=== PATIENT | female | born 1990 | race Two or more races ===

== ENCOUNTER 2018-12-07 23:18 | Emergency (ER) | payer MEDICAID ==
[~2018-12-07] VITALS: Ht 160 cm; Wt 117.9 kg
[2018-12-07 23:56] LABS: Basophils # (auto) 0 uL; Basophils % (auto) 0.3 % (0.0-2.0); Eosinophils # (auto) 0.1 uL; Hematocrit 42.2 % (36.0-46.0); Hemoglobin 13.9 g/dL (12.2-16.2); Lymphocytes # (auto) 1.5 uL; Lymphocytes % (auto) 12.2 % (10.0-50.0); Mean Corpuscular Volume 87.9 fL (80.0-100.0); Monocytes # (auto) 0.6 uL; Monocytes % (auto) 4.8 % (0.0-12.0); Neutrophils # (auto) 10.3 uL; Neutrophils % (auto) 81.7 % (37.0-80.0); Platelet Count (auto) 279 10^3/uL (140-450); Red Cell Distribution Width 14.2 % (11.8-14.3); White Blood Cell 12.6 10^3/uL (4.4-10.8)
[2018-12-08 00:14] LABS: Albumin 3.6 g/dL (3.4-5.0); BUN/Creatinine Ratio 13.3; Calcium 8.1 mg/dL (8.5-10.1); Potassium 3.3 mmol/L (3.5-5.1)
[2018-12-08 00:16] LABS: Bilirubin, Total 0.3 mg/dL (0.2-1.0)
[2018-12-08 03:38] LABS: Urine Bacteria FEW /hpf (None Seen); Urine Blood Negative /uL (Negative); Urine Mucus FEW (None Seen); Urine Specific Gravity 1.027 (1.001-1.035); Urine WBC 2 /hpf (0 - 5)
[2018-12-08 03:41] LABS: Alcohol, Urine < 3.0 mg/dL (0-5); Amphetamine Screen, Urine NEGATIVE (NEGATIVE); Barbiturate Scree,Urine NEGATIVE (NEGATIVE); Benzodiazephine Screen, Urine NEGATIVE (NEGATIVE); Cannabinoid Screen, Urine NEGATIVE (NEGATIVE); Cocaine Screen, Urine NEGATIVE (NEGATIVE); Opiate Scree,Urine NEGATIVE (NEGATIVE); Phencyclidine Screen, Urine NEGATIVE (NEGATIVE)
[2018-12-08 03:47] LABS: Urine Pregnacy Test Negative (Negative)
[2018-12-08 04:51] VITALS: BP 131/58
== END 2018-12-08 04:55 | disposition home or self-care (01) ==
LOC: ER 23:21
DX: K29.00 Acute gastritis without bleeding (principal); A05.9 Bacterial foodborne intoxication, unspecified; D72.829 Elevated white blood cell count, unspecified
CPT/HCPCS: 36415; 74176; 80053; 80307; 81001; 81025; 83690; 85025

== ENCOUNTER 2019-04-18 05:04 | Inpatient (IN) | payer MEDICAID ==
[~2019-04-18] VITALS: Ht 162.6 cm; Wt 106.6 kg
[2019-04-18 06:15] LABS: Urine Bacteria NONE SEEN /hpf (None Seen); Urine Blood Negative /uL (Negative); Urine Hyaline Cast FEW /lpf (0 - 2); Urine Mucus FEW (None Seen); Urine Specific Gravity 1.031 (1.001-1.035); Urine WBC 21 /hpf (0 - 5)
[2019-04-18] MEDS ORDERED: PANTOPRAZOLE 40 MG/10 ML VIAL INJ IV STA (06:33)
[2019-04-18] MEDS ORDERED: SODIUM CHLORIDE 0.9% 1,000 ML IVB ONE (06:33)
[2019-04-18] MEDS ORDERED: MORPHINE SULFATE 4 MG/ML SYR/VIAL IV ONE (06:45)
[2019-04-18] MEDS ORDERED: ONDANSETRON HCL 4 MG/2 ML VIAL IV ONE (06:45)
[2019-04-18 06:54] LABS: Basophils # (auto) 0 10 ^3/uL (0-0.2); Basophils % (auto) 0.2 % (0.0-2.0); Eosinophils # (auto) 0 10 ^3/uL (0-0.8); Eosinophils % (auto) 0.3 % (0.0-7.0); Hematocrit 41.7 % (36.0-46.0); Hemoglobin 13.8 g/dL (12.2-16.2); Lymphocytes # (auto) 0.9 10 ^3/uL (0.4-5.4); Lymphocytes % (auto) 6.5 % (10.0-50.0); Mean Corpuscular Hemoglobin 29.1 pg (28.0-32.0); Mean Corpuscular Hgb Conc. 33.1 g/dL (32.0-36.0); Monocytes # (auto) 0.8 10 ^3/uL (0-1.3); Monocytes % (auto) 5.7 % (0.0-12.0); Neutrophils # (auto) 11.6 10 ^3/uL (1.6-8.6); Neutrophils % (auto) 87.3 % (37.0-80.0); Platelet Count (auto) 265 10^3/uL (140-450); Red Blood Cells 4.74 10^6/uL (4.0-5.20); Red Cell Distribution Width 15.4 % (11.8-14.3); White Blood Cell 13.3 10^3/uL (4.4-10.8)
[2019-04-18 07:06] LABS: Albumin 3.5 g/dL (3.4-5.0); Calcium 8.7 mg/dL (8.5-10.1); Potassium 3.3 mmol/L (3.5-5.1)
[2019-04-18 07:09] LABS: BUN/Creatinine Ratio 13.6; Total Protein 8.3 g/dL (6.4-8.2)
[2019-04-18] MEDS ORDERED: cefTRIAXone 1GM/50ML D5W 50 ML IV ONE (08:00)
[2019-04-18] MEDS ORDERED: MORPHINE SULF INJ 2 MG/ML SYRINGE 1ML IV PRN (08:45)
[2019-04-18] MEDS ORDERED: NITROGLYCERIN 0.4 MG SL TAB SL PRN (08:45)
[2019-04-18] MEDS ORDERED: metroNIDAZOLE 500MG/100ML 100 ML IV ONE (09:15)
[2019-04-18] MEDS: D5W/SOD CHL 0.45%/KCL 20MEQ 1,000 ML IV SCH ×2 (09:26→18:34)
[2019-04-18] MEDS: FAMOTIDINE (10MG/ML) 2ML VL IV SCH ×2 (10:23→21:33)
--- NOTE | 2019-04-18 11:32 | NUR ---
Telemetry admit from ER BASSAM THORNTON admitted to Telemetry unit after SBAR received. Patient oriented to SOLIS NEWMAN RN primary RN, unit, room, bed, and unit policies regarding patient care and visiting hours. Patient now on continuous telemetry monitoring, tele box # [id number] and telemetry reading on arrival to unit is SR. Patient placed on bedside oxygen, weighed by bedscale and encouraged to call if they need something. All questions and concerns addressed, patient verbalized understanding.
[2019-04-18 12:05] VITALS: BP 101/51
--- NOTE | 2019-04-18 12:15 | NUR ---
SURGICAL CONSULT MD Flory THORPE AT [facility]. PATIENT UPDATED ON POC AND ALL QUESTIONS AND CONCERNS ADDRESSED AT THIS TIME.
--- NOTE | 2019-04-18 12:17 | NUR ---
PATIENT DENIES USE OF HOME MEDICATIONS
[2019-04-18 13:00] VITALS: BP 101/51
[2019-04-18] MEDS: metroNIDAZOLE 500MG/100ML 100 ML IV SCH ×2 (14:55→21:35)
[2019-04-18 17:00] VITALS: BP 112/58
--- NOTE | 2019-04-18 19:30 | NUR ---
Opening Shift Note Received shift report from Harriett DEMPSEY. Assumed care of patient, awake and alert. No S/S of distress/SOB or pain. Instructed on POC and to call for assist PRN, will continue to monitor for changes Q1hr and PRN. Bed in lowest locked position, side rails up times 2. Call light within reach. Continuing to monitor
[2019-04-18 20:00] VITALS: BP 97/53
[2019-04-18 22:00] VITALS: BP 97/53
[2019-04-19 02:00] VITALS: BP 98/60
[2019-04-19 05:00] VITALS: BP 93/63
[2019-04-19] MEDS: D5W/SOD CHL 0.45%/KCL 20MEQ 1,000 ML IV SCH ×2 (05:36→14:44)
[2019-04-19] MEDS: metroNIDAZOLE 500MG/100ML 100 ML IV SCH ×3 (05:36→22:16)
[2019-04-19] MEDS: MORPHINE SULF INJ 2 MG/ML SYRINGE 1ML IV PRN (05:37)
[2019-04-19] MEDS: ONDANSETRON HCL 4 MG/2 ML VIAL IV PRN (05:38)
[2019-04-19 05:57] LABS: Basophils # (auto) 0 10 ^3/uL (0-0.2); Basophils % (auto) 0.3 % (0.0-2.0); Eosinophils # (auto) 0.1 10 ^3/uL (0-0.8); Eosinophils % (auto) 2.2 % (0.0-7.0); Hemoglobin 12.5 g/dL (12.2-16.2); Lymphocytes # (auto) 1.9 10 ^3/uL (0.4-5.4); Lymphocytes % (auto) 30.1 % (10.0-50.0); Mean Corpuscular Hgb Conc. 33.7 g/dL (32.0-36.0); Monocytes # (auto) 0.5 10 ^3/uL (0-1.3); Monocytes % (auto) 8.5 % (0.0-12.0); Neutrophils # (auto) 3.8 10 ^3/uL (1.6-8.6); Neutrophils % (auto) 58.9 % (37.0-80.0); Platelet Count (auto) 235 10^3/uL (140-450); Red Blood Cells 4.16 10^6/uL (4.0-5.20); Red Cell Distribution Width 15.5 % (11.8-14.3); White Blood Cell 6.4 10^3/uL (4.4-10.8)
[2019-04-19 06:13] LABS: Potassium 3.7 mmol/L (3.5-5.1)
[2019-04-19 06:14] LABS: INR 1.07 (0.9-1.15); Partial Thromboplastin Time 30.7 sec (23.64-32.05)
--- NOTE | 2019-04-19 06:14 | NUR ---
REPORT GIVEN TO DIANA DEMPSEY
[2019-04-19 06:17] LABS: Albumin 2.9 g/dL (3.4-5.0); BUN/Creatinine Ratio 16.7
[2019-04-19 06:38] LABS: Bilirubin, Total 0.3 mg/dL (0.2-1.0); Total Protein 6.7 g/dL (6.4-8.2)
[2019-04-19 09:00] VITALS: BP 114/70
[2019-04-19] MEDS: cefTRIAXone 1GM/50ML D5W 50 ML IV SCH (09:00)
[2019-04-19] MEDS: FAMOTIDINE (10MG/ML) 2ML VL IV SCH ×2 (10:00→22:16)
[2019-04-19 13:00] VITALS: BP 92/48
[2019-04-19 17:05] VITALS: BP 95/65
--- NOTE | 2019-04-19 18:39 | NUR ---
Opening Shift Note Assumed care of patient, awake and alert. No S/S of distress/SOB or pain. Instructed on POC and to call for assist PRN, will continue to monitor for changes Q1hr and PRN. Bed in lowest locked position, side rails up times 2. Call light within reach. Continuing to monitor
--- NOTE | 2019-04-19 19:30 | NUR ---
RECEIVED PATIENT FROM DAY SHIFT RN. PATENT RESTING IN BED. NO S/S OF DISTRESS NOTED. DENIED ABD PAIN FOR NOW. REINFORCED NPO FOR NOW. POC INSTRUCTED AND ENCOURAGED PATIENT TO CALL FOR SALES OPERATIONS ASSISTANT IF NEEDED. BED IN LOWEST POSITION WITH SIDE RAILS UP X 2. CALL PEREZ WITHIN REACH. CONTINUE TO MONITOR FOR CHANGES Q1H AND PRN.
--- NOTE | 2019-04-19 22:44 | NUR ---
PATIENT RESTING IN BED. NO S/S OF DISTRESS NOTED. DENIED PAIN FOR NOW. CONTINUE TO MONITOR.
[2019-04-20 01:51] VITALS: BP 104/58
--- NOTE | 2019-04-20 03:50 | NUR ---
PATIENT SLEEPING. NO S/S OF DISTRESS NOTED. CONTINUE CARE.
[2019-04-20] MEDS: D5W/SOD CHL 0.45%/KCL 20MEQ 1,000 ML IV SCH ×3 (04:39→20:42)
[2019-04-20 05:00] VITALS: BP 106/59
[2019-04-20] MEDS: metroNIDAZOLE 500MG/100ML 100 ML IV SCH ×3 (05:47→21:25)
[2019-04-20 06:37] LABS: Albumin 3.1 g/dL (3.4-5.0); Magnesium 1.9 mg/dL (1.6-2.6); Potassium 3.8 mmol/L (3.5-5.1)
[2019-04-20 06:42] LABS: Bilirubin, Direct 0.1 mg/dL (0-0.2); Bilirubin, Total 0.4 mg/dL (0.2-1.0); Total Protein 7.1 g/dL (6.4-8.2)
[2019-04-20] MEDS: cefTRIAXone 1GM/50ML D5W 50 ML IV SCH (08:48)
[2019-04-20] MEDS: FAMOTIDINE (10MG/ML) 2ML VL IV SCH ×2 (08:48→21:25)
[2019-04-20 09:00] VITALS: BP 104/60
[2019-04-20 12:59] VITALS: BP 102/61
--- NOTE | 2019-04-20 14:30 | NUR ---
Headache Patient complained of headache at 6. Will page MD for orders. Offered cold compress, and low light.
[2019-04-20 16:36] VITALS: BP 106/62
--- NOTE | 2019-04-20 16:50 | NUR ---
Diet Order Telephone Order received from Dr. Tay to give patient clear liquid diet. Order also received for Acetaminophen 650mg Q6HP for pain. Order entered in eMAR.
[2019-04-20] MEDS ORDERED: ACETAMINOPHEN 325 MG TAB PO PRN (17:00)
[2019-04-20] MEDS: ONDANSETRON HCL 4 MG/2 ML VIAL IV PRN (17:44)
--- NOTE | 2019-04-20 19:30 | NUR ---
RECEIVED PATIENT FROM DAY SHIFT RN. PATENT RESTING IN BED. NO S/S OF DISTRESS NOTED. DENIED ABD PAIN FOR NOW. POC INSTRUCTED AND ENCOURAGED PATIENT TO CALL FOR COLOR PRINT INSPECTOR IF NEEDED. BED IN LOWEST POSITION WITH SIDE RAILS UP X 2. CALL PEREZ WITHIN REACH. CONTINUE TO MONITOR FOR CHANGES Q1H AND PRN.
[2019-04-20 22:00] VITALS: BP 97/53
--- NOTE | 2019-04-21 00:26 | NUR ---
PATIENT SLEEPING. NO S/S OF DISTRESS NOTED. CONTINUE CARE.
[2019-04-21] MEDS: D5W/SOD CHL 0.45%/KCL 20MEQ 1,000 ML IV SCH (03:12)
[2019-04-21 05:00] VITALS: BP 100/60
[2019-04-21] MEDS: metroNIDAZOLE 500MG/100ML 100 ML IV SCH ×2 (05:40→14:00)
--- NOTE | 2019-04-21 05:40 | NUR ---
PATIENT SLEEPING. NO S/S OF DISTRESS NOTED. CONTINUE CARE.
--- NOTE | 2019-04-21 07:45 | NUR ---
Opening Shift Note Assumed care of patient, awake and alert. No S/S of distress/SOB or pain. Instructed on POC and to call for assist PRN, will continue to monitor for changes Q1hr and PRN. Patient had questions regarding going home. She was informed that there is no discharge order yet, when the hospitalist round he will notify her. She also stated that she does not want to do surgery. She would like to follow up with her PCP. She will notify hospitalist.
[2019-04-21 09:00] VITALS: BP 89/45
[2019-04-21] MEDS: cefTRIAXone 1GM/50ML D5W 50 ML IV SCH (09:28)
[2019-04-21] MEDS: FAMOTIDINE (10MG/ML) 2ML VL IV SCH (09:28)
[2019-04-21 13:00] VITALS: BP_SYST 101; BP_SYST 97; BP_DIAS 52; BP_DIAS 59
[2019-04-21] MEDS: ONDANSETRON HCL 4 MG/2 ML VIAL IV PRN (14:00)
[2019-04-21] MEDS: MORPHINE SULF INJ 2 MG/ML SYRINGE 1ML IV PRN (14:00)
--- NOTE | 2019-04-21 14:00 | NUR ---
Pain Complaint Patient complained of pain to the upper epigastric region level 7. Morphine 2mg IV given and Zofran 4mg IV to prevent nausea. Will reassess in 30 minutes.
--- NOTE | 2019-04-21 16:00 | NUR ---
PCP Patient states that her doctor is Dr. Beth, and she will do a walk in on Tuesday.
[2019-04-21 16:03] VITALS: BP 105/57
[2019-04-21 16:32] VITALS: BP 105/57
--- NOTE | 2019-04-21 17:00 | NUR ---
Discharge instructions given as ordered. Encourage to follow up with PMD as instructed. All questions and concerns addressed. Patient verbalized understanding. Medication reconciliation form completed and copy given to patient. IV removed with catheter intact and pressure dressing applied. Telemetry unit returned to ICU. Patient taken to vehicle via wheelchair with all personal belongings, accompanied by staff and family member. No distress noted at time of departure.
== END 2019-04-21 17:00 | disposition home or self-care (01) ==
LOC: ER 05:06 → TELE 05:07 → TELE-WESTW 11:30
PROVIDERS: ADMIT Nurse Practitioner Acute Care; ATTEND Internal Medicine
DX: K80.00 Calculus of gallbladder with acute cholecystitis without obstruction (principal); N17.0 Acute kidney failure with tubular necrosis; E44.0 Moderate protein-calorie malnutrition; R65.10 Systemic inflammatory response syndrome (SIRS) of non-infectious origin without acute organ dysfunction; N30.00 Acute cystitis without hematuria; K83.8 Other specified diseases of biliary tract; Z68.41 Body mass index [BMI] 40.0-44.9, adult; E87.6 Hypokalemia; E66.9 Obesity, unspecified; N83.292 Other ovarian cyst, left side; K29.70 Gastritis, unspecified, without bleeding
CPT/HCPCS: 36415; 74176; 74181; 76705; 80053; 80076; 81001; 82150; 83690; 83735; 84132; 85025; 85610; 85730; 87086; 93005; 96361; 96365; 96375; C9113; G0378; J0696; J2405; J3490

== ENCOUNTER 2021-01-11 22:20 | Emergency (ER) | payer MEDICAID ==
[~2021-01-11] VITALS: Ht 162.6 cm; Wt 120.2 kg
[2021-01-11 23:34] LABS: Basophils # (auto) 0 10 ^3/uL (0-0.2); Basophils % (auto) 0.2 % (0.0-2.0); Eosinophils # (auto) 0.4 10 ^3/uL (0-0.8); Eosinophils % (auto) 2.7 % (0.0-7.0); Hematocrit 41.7 % (36.0-46.0); Hemoglobin 13.6 g/dL (12.2-16.2); Lymphocytes # (auto) 2.4 10 ^3/uL (0.4-5.4); Mean Corpuscular Hemoglobin 29.7 pg (28.0-32.0); Mean Corpuscular Hgb Conc. 32.5 g/dL (32.0-36.0); Mean Corpuscular Volume 91.4 fL (80.0-100.0); Monocytes # (auto) 0.8 10 ^3/uL (0-1.3); Monocytes % (auto) 6.4 % (0.0-12.0); Neutrophils # (auto) 9.6 10 ^3/uL (1.6-8.6); Neutrophils % (auto) 72.7 % (37.0-80.0); Red Blood Cells 4.57 10^6/uL (4.0-5.20); Red Cell Distribution Width 14.2 % (11.8-14.3); White Blood Cell 13.2 10^3/uL (4.4-10.8)
[2021-01-11 23:52] LABS: Albumin 3.7 g/dL (3.4-5.0); BUN/Creatinine Ratio 26.2; Calcium 8.3 mg/dL (8.5-10.1); Potassium 4.1 mmol/L (3.5-5.1)
[2021-01-12] MEDS ORDERED: SODIUM CHLORIDE 0.9% 1,000 ML IV ONE
[2021-01-12 00:01] LABS: Bilirubin, Total 0.3 mg/dL (0.2-1.0); Total Protein 7.4 g/dL (6.4-8.2)
[2021-01-12 00:58] LABS: Urine Bacteria FEW /hpf (None Seen); Urine Blood Negative /uL (Negative); Urine Specific Gravity 1.011 (1.001-1.035); Urine WBC 4 /hpf (0 - 5)
[2021-01-12 07:55] VITALS: BP 128/55
== END 2021-01-12 08:01 | disposition home or self-care (01) ==
LOC: ER 22:21
DX: K80.50 Calculus of bile duct without cholangitis or cholecystitis without obstruction (principal)
CPT/HCPCS: 36415; 76705; 76775; 80053; 81001; 83605; 85025

== ENCOUNTER 2021-08-31 21:19 | Observation (INO) | payer MEDICAID ==
[~2021-08-31] VITALS: Ht 160 cm; Wt 125.6 kg
[2021-08-31 22:54] LABS: Basophils # (auto) 0 10 ^3/uL (0-0.2); Basophils % (auto) 0.2 % (0.0-2.0); Eosinophils # (auto) 0.1 10 ^3/uL (0-0.8); Eosinophils % (auto) 1.1 % (0.0-7.0); Hematocrit 34.5 % (36.0-46.0); Hemoglobin 11.3 g/dL (12.2-16.2); Lymphocytes # (auto) 1.4 10 ^3/uL (0.4-5.4); Lymphocytes % (auto) 12.2 % (10.0-50.0); Mean Corpuscular Hemoglobin 28.5 pg (28.0-32.0); Mean Corpuscular Hgb Conc. 32.6 g/dL (32.0-36.0); Mean Corpuscular Volume 87.3 fL (80.0-100.0); Monocytes # (auto) 0.7 10 ^3/uL (0-1.3); Neutrophils # (auto) 9.3 10 ^3/uL (1.6-8.6); Neutrophils % (auto) 80.5 % (37.0-80.0); Nucleated Red Blood Cells % 0.1 %; Red Blood Cells 3.96 10^6/uL (4.0-5.20); Red Cell Distribution Width 15.7 % (11.8-14.3); White Blood Cell 11.5 10^3/uL (4.4-10.8)
[2021-08-31 23:15] LABS: Albumin 2.8 g/dL (3.4-5.0); BUN/Creatinine Ratio 15.4; Calcium 8.2 mg/dL (8.5-10.1); Potassium 3.5 mmol/L (3.5-5.1)
[2021-08-31 23:18] LABS: Bilirubin, Total 0.9 mg/dL (0.2-1.0); Total Protein 6.3 g/dL (6.4-8.2)
== END 2021-09-01 00:04 | disposition home or self-care (01) ==
LOC: LDRP 21:19
PROVIDERS: ADMIT Obstetrics & Gynecology Obstetrics; ATTEND Obstetrics & Gynecology Obstetrics
DX: O26.893 Other specified pregnancy related conditions, third trimester (principal); R10.13 Epigastric pain; O21.2 Late vomiting of pregnancy; Z3A.31 31 weeks gestation of pregnancy
CPT/HCPCS: 36415; 59025; 76705; 80053; 81002; 85025; 94760; G0378

== ENCOUNTER 2021-10-26 04:03 | Inpatient (IN) | payer MEDICAID ==
[2021-10-24 10:40] LABS: Basophils # (auto) 0.1 10 ^3/uL (0-0.2); Basophils % (auto) 0.6 % (0.0-2.0); Eosinophils # (auto) 0.3 10 ^3/uL (0-0.8); Eosinophils % (auto) 2.9 % (0.0-7.0); Hematocrit 38.3 % (36.0-46.0); Hemoglobin 13.1 g/dL (12.2-16.2); Lymphocytes # (auto) 1.7 10 ^3/uL (0.4-5.4); Lymphocytes % (auto) 18.6 % (10.0-50.0); Mean Corpuscular Hemoglobin 30.1 pg (28.0-32.0); Mean Corpuscular Hgb Conc. 34.3 g/dL (32.0-36.0); Mean Corpuscular Volume 87.8 fL (80.0-100.0); Monocytes # (auto) 0.6 10 ^3/uL (0-1.3); Neutrophils # (auto) 6.5 10 ^3/uL (1.6-8.6); Neutrophils % (auto) 70.9 % (37.0-80.0); Red Blood Cells 4.36 10^6/uL (4.0-5.20); Red Cell Distribution Width 14.9 % (11.8-14.3); White Blood Cell 9.2 10^3/uL (4.4-10.8)
[2021-10-24 10:57] LABS: Albumin 2.8 g/dL (3.4-5.0); Calcium 8.6 mg/dL (8.5-10.1)
[2021-10-24 11:02] LABS: BUN/Creatinine Ratio 14.3; Bilirubin, Total 0.4 mg/dL (0.2-1.0); Total Protein 7.3 g/dL (6.4-8.2)
[2021-10-24 11:40] LABS: INR 0.97 (0.9-1.15); Partial Thromboplastin Time 32.8 sec (24.6-33.4)
[2021-10-24 11:53] LABS: Urine Bacteria FEW /hpf (None Seen); Urine Blood Negative /uL (Negative); Urine Specific Gravity 1.012 (1.001-1.035); Urine WBC 10 /hpf (0 - 5)
[2021-10-24 12:15] LABS: Alcohol, Urine < 3.0 mg/dL (0-10)
[2021-10-24 12:16] LABS: Amphetamine Screen, Urine NEGATIVE (NEGATIVE); Barbiturate Scree,Urine NEGATIVE (NEGATIVE); Benzodiazephine Screen, Urine NEGATIVE (NEGATIVE); Cannabinoid Screen, Urine NEGATIVE (NEGATIVE); Cocaine Screen, Urine NEGATIVE (NEGATIVE); Opiate Scree,Urine NEGATIVE (NEGATIVE); Phencyclidine Screen, Urine NEGATIVE (NEGATIVE)
[2021-10-25 06:06] LABS: RPR Non Reactive (Non Reactive)
[~2021-10-26] VITALS: Ht 160 cm; Wt 126.6 kg
[2021-10-26] VITALS (19 sets, daily range): BP systolic 93–142; BP diastolic 52–87
[~2021-10-26 04:03] MED LIST: PREN1TAB71 OR
[2021-10-26] MEDS ORDERED: ceFAZolin 2 GM in D5W 5% 100 ML IV ONE (04:30)
[2021-10-26] MEDS ORDERED: LACTATED RINGER'S 1,000 ML IV ONE (04:30)
[2021-10-26] MEDS: LACTATED RINGER'S 1,000 ML IV SCH ×3 (06:15→22:43)
[2021-10-26] MEDS ORDERED: ceFAZolin 1GM/50ML 0 ML IV ONE (06:58)
[2021-10-26] MEDS ORDERED: SODIUM CITR/CITRIC ACID ORAL SOLN 30 ML ONE (07:58)
[2021-10-26] MEDS ORDERED: TETRACAINE 1% INJ 2 ML VIAL IJ ONE (08:00)
[2021-10-26] MEDS ORDERED: MIDAZOLAM HCL 2MG/2ML 2ml VIAL (1mg/ml) ONE (08:06)
[2021-10-26] MEDS ORDERED: MORPHINE SULF PF 5 MG/10 ML VIAL ONE (08:06)
[2021-10-26] MEDS ORDERED: fentaNYL CITRATE 100 MCG/2 ML VL ONE (08:06)
[2021-10-26] MEDS: SODIUM CITR/CITRIC ACID ORAL SOLN 30 ML PO SCH ×3 (09:00→17:42)
[2021-10-26] MEDS ORDERED: oxyTOCIN 10 UNIT/ML 10ML VIAL ONE (09:31)
[2021-10-26] MEDS ORDERED: ePHEDrine SULFATE 50 MG/ML AMP ONE (09:31)
[2021-10-26] MEDS ORDERED: ONDANSETRON HCL 4 MG/2 ML VIAL ONE (09:31)
[2021-10-26] MEDS ORDERED: NALBUPHINE HCL 10 MG/1ml INJECTION SUBCUT ONE (10:00)
[2021-10-26] MEDS ORDERED: diphenhdrAMINE HCL 50 MG/1 ML VL IV PRN (10:00)
[2021-10-26] MEDS ORDERED: HYDROmorphone HCL 2 MG/ML VL/or syr IV PRN (10:00)
[2021-10-26] MEDS ORDERED: DexAMETHasone SOD PHOS 10MG/1ML VIAL INJ IV PRN (10:00)
[2021-10-26] MEDS ORDERED: NALOXONE HCL 0.4 MG/ML VIAL IV PRN (10:00)
[2021-10-26] MEDS ORDERED: ONDANSETRON HCL 4 MG/2 ML VIAL IV PRN (10:00)
[2021-10-26] MEDS ORDERED: KETOROLAC TROMETH 30 MG/ML 1ML VIAL IV PRN ×2 (10:00→13:00)
[2021-10-26] MEDS ORDERED: SIMETHICONE 80 MG CHEWABLE TABLET PO PRN (13:00)
[2021-10-26] MEDS ORDERED: ePHEDrine SULFATE 50 MG/ML AMP IV PRN (13:00)
[2021-10-26] MEDS ORDERED: ceFAZolin 1GM/50ML 50 ML IV ONE (13:00)
[2021-10-26] MEDS ORDERED: GUM (CHEWING) 1 GUM CHEW CHEW ONE (13:00)
[2021-10-26] MEDS ORDERED: IBU600T PO (21:00)
[2021-10-26] MEDS ORDERED: DOCU100C10 PO (21:00)
[2021-10-26] MEDS ORDERED: HYDR-4902 PO (21:00)
[2021-10-26] MEDS: DOCUSATE SOD 100 MG CAP PO SCH (22:41)
[2021-10-27] VITALS (15 sets, daily range): BP systolic 95–125; BP diastolic 50–74
[2021-10-27 06:00] LABS: Basophils # (auto) 0 10 ^3/uL (0-0.2); Basophils % (auto) 0.5 % (0.0-2.0); Eosinophils # (auto) 0.2 10 ^3/uL (0-0.8); Eosinophils % (auto) 1.6 % (0.0-7.0); Hematocrit 32.5 % (36.0-46.0); Hemoglobin 10.9 g/dL (12.2-16.2); Lymphocytes # (auto) 1.8 10 ^3/uL (0.4-5.4); Lymphocytes % (auto) 18.7 % (10.0-50.0); Mean Corpuscular Hemoglobin 29.3 pg (28.0-32.0); Mean Corpuscular Hgb Conc. 33.6 g/dL (32.0-36.0); Mean Corpuscular Volume 87.2 fL (80.0-100.0); Monocytes # (auto) 0.7 10 ^3/uL (0-1.3); Neutrophils # (auto) 6.9 10 ^3/uL (1.6-8.6); Neutrophils % (auto) 72.2 % (37.0-80.0); Red Blood Cells 3.73 10^6/uL (4.0-5.20); Red Cell Distribution Width 14.9 % (11.8-14.3); White Blood Cell 9.5 10^3/uL (4.4-10.8)
[2021-10-27] MEDS: IBUPROFEN 600 MG TAB PO SCH ×3 (06:00→17:41)
[2021-10-27] MEDS: DOCUSATE SOD 100 MG CAP PO SCH (22:25)
[2021-10-27] MEDS ORDERED: HYDROcodone-ACET 5/325MG TAB PO PRN (22:45)
[2021-10-27] MEDS: HYDROcodone-ACET 5/325MG TAB PO PRN (22:55)
[2021-10-28] MEDS ORDERED: IBUPROFEN 600 MG TAB PO SCH (01:45)
[2021-10-28 03:00] VITALS: BP 105/66
[2021-10-28] MEDS ORDERED: HYDROcodone-ACET 5/325MG TAB PO PRN ×2 (06:00)
[2021-10-28 07:00] VITALS: BP 122/74
[2021-10-28] MEDS: HYDROcodone-ACET 5/325MG TAB PO PRN (10:25)
[2021-10-28] MEDS ORDERED: MEASLES, MUMPS & RUBELLA VAC(MMRII) 0.5ML SC ONE (10:30)
[2021-10-28 11:15] VITALS: BP 133/83
== END 2021-10-28 12:43 | disposition home or self-care (01) | DRG 540 ==
LOC: LDRP 04:03
PROVIDERS: ADMIT Obstetrics & Gynecology; ATTEND Obstetrics & Gynecology
PROC: 10D00Z1 Extraction of Products of Conception, Low, Open Approach (ICD-10-PCS; principal; 2021-10-26 08:08)
DX: O99.214 Obesity complicating childbirth (principal); E66.01 Morbid (severe) obesity due to excess calories; O34.211 Maternal care for low transverse scar from previous cesarean delivery; Z20.822 Contact with and (suspected) exposure to COVID-19; Z37.0 Single live birth; Z3A.39 39 weeks gestation of pregnancy
CPT/HCPCS: 36415; 59025; 80053; 80307; 81001; 81002; 85025; 85610; 85730; 86592; 86850; 86900; 86901; 94760; 94762; 96360; 96361; 96365; 96366; G0378; J0690; J1885; J2250; J2405; J2590; J7060

== ENCOUNTER 2021-11-15 02:46 | Emergency (ER) | payer MEDICAID ==
[~2021-11-15] VITALS: Ht 160 cm; Wt 118.1 kg
[~2021-11-15 02:46] MED LIST changes: +DOCU100C10 PO; +HYDR-4902 PO; +IBU600T PO
[2021-11-15 08:32] LABS: Basophils # (auto) 0.1 10 ^3/uL (0-0.2); Basophils % (auto) 0.4 % (0.0-2.0); Eosinophils # (auto) 0.1 10 ^3/uL (0-0.8); Eosinophils % (auto) 0.6 % (0.0-7.0); Hematocrit 41.2 % (36.0-46.0); Hemoglobin 13.4 g/dL (12.2-16.2); Lymphocytes # (auto) 1.9 10 ^3/uL (0.4-5.4); Lymphocytes % (auto) 13.2 % (10.0-50.0); Mean Corpuscular Hemoglobin 28.1 pg (28.0-32.0); Mean Corpuscular Hgb Conc. 32.6 g/dL (32.0-36.0); Mean Corpuscular Volume 86.4 fL (80.0-100.0); Monocytes # (auto) 0.7 10 ^3/uL (0-1.3); Monocytes % (auto) 5.2 % (0.0-12.0); Neutrophils # (auto) 11.4 10 ^3/uL (1.6-8.6); Neutrophils % (auto) 80.6 % (37.0-80.0); Red Blood Cells 4.77 10^6/uL (4.0-5.20); White Blood Cell 14.1 10^3/uL (4.4-10.8)
[2021-11-15 08:46] LABS: Albumin 3.6 g/dL (3.4-5.0); Calcium 8.9 mg/dL (8.5-10.1); Potassium 4.6 mmol/L (3.5-5.1)
[2021-11-15 08:53] LABS: BUN/Creatinine Ratio 11.3; Bilirubin, Total 0.4 mg/dL (0.2-1.0); Total Protein 8.2 g/dL (6.4-8.2)
[2021-11-15 09:24] LABS: Urine Bacteria FEW /hpf (None Seen); Urine Blood 3+ /uL (Negative); Urine Mucus FEW (None Seen); Urine Specific Gravity 1.025 (1.001-1.035); Urine WBC 29 /hpf (0 - 5)
[2021-11-15] MEDS ORDERED: cefTRIAXone 1GM/50ML D5W 50 ML IV ONE (15:15)
[2021-11-15] MEDS ORDERED: SODIUM CHLORIDE 0.9% 500 ML IVB ONE (15:15)
[2021-11-15] MEDS ORDERED: KETOROLAC TROMETH 30 MG/ML 1ML VIAL IV ONE (15:30)
[2021-11-15 15:34] VITALS: BP 133/80
[2021-11-15] MEDS ORDERED: METO-281 PO (15:39)
[2021-11-15] MEDS ORDERED: CIPR-173 PO (15:39)
[2021-11-15] MEDS ORDERED: TRAM50TA2 PO (15:39)
== END 2021-11-15 17:35 | disposition home or self-care (01) ==
LOC: ER 02:46
DX: N39.0 Urinary tract infection, site not specified (principal); K80.20 Calculus of gallbladder without cholecystitis without obstruction; K76.0 Fatty (change of) liver, not elsewhere classified; Z79.1 Long term (current) use of non-steroidal anti-inflammatories (NSAID); Z79.899 Other long term (current) drug therapy
CPT/HCPCS: 36415; 76705; 80053; 81001; 85025; 96365; 96375; 99284; J0696; J1885; J7040